=== PATIENT | male | born 1965 | race Caucasian/White ===

== ENCOUNTER 2019-11-10 06:05 | Day surgery (SDC) | payer OTHER ==
[~2019-11-10] VITALS: Ht 180.3 cm; Wt 93.9 kg
[2019-11-10] MEDS ORDERED: ONDANSETRON HCL 4 MG/2 ML VIAL IVP PRN (08:30)
[2019-11-10] MEDS ORDERED: HYDROmorphone 1 MG INJ. 1 MG/ML AMPUL IVP PRN (08:30)
[2019-11-10] MEDS ORDERED: LR 1,000 ML IV.SOLN IV ONE (09:48)
[2019-11-10] MEDS ORDERED: fentaNYL CITRATE 250 MCG/5 ML AMP ONE (09:48)
[2019-11-10] MEDS ORDERED: DEXAMETHASONE SOD PHOSPHATE 4 MG/ML VIAL ONE (09:48)
[2019-11-10] MEDS ORDERED: LIDOCAINE/EPI 1% 1:100000 20 ML VIAL INJ ONE (09:48)
[2019-11-10] MEDS ORDERED: DESFLURANE 15 MIN GAS INH ONE (09:48)
[2019-11-10] MEDS ORDERED: MUPIROCIN 2% TOPICAL OINTMENT 22 GM ONE (09:48)
[2019-11-10] MEDS ORDERED: PROPOFOL 200MG/ 20ML VIAL (DIPRIVAN) IV ONE (09:48)
[2019-11-10] MEDS ORDERED: SUCCINYLCHOLINE CHLORIDE 20 MG/ML(QUELICIN) ONE (09:48)
[2019-11-10] MEDS ORDERED: MIDAZOLAM HCL 5 MG/ML VIAL (VERSED) IV ONE (09:48)
[2019-11-10 10:39] VITALS: BP_SYST 155
[2019-11-10] MEDS ORDERED: HYDROcodone/ACETAMIN 5-325 MG TAB (NORCO/ VICODIN) PO ONE (12:30)
[2019-11-10] MEDS ORDERED: HYDROcodone/ACETAMIN 5-325 MG TAB (NORCO/ VICODIN) ONE (12:34)
== END 2019-11-10 12:50 | disposition home or self-care (01) ==
LOC: SMU 06:05 → SDS 06:05
PROVIDERS: ATTEND Otolaryngology
DX: J34.2 Deviated nasal septum (principal); J34.89 Other specified disorders of nose and nasal sinuses; J30.1 Allergic rhinitis due to pollen; H68.101 Unspecified obstruction of Eustachian tube, right ear; I10 Essential (primary) hypertension; E66.3 Overweight; Z98.890 Other specified postprocedural states
CPT/HCPCS: 30140; 30520; 88305; 88311; J0330; J1100; J2250; J2704; J3010; J7120